=== PATIENT | male | born 2000 | race African-American/Black ===

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

== ENCOUNTER 2020-08-18 10:06 | Emergency (ER) | payer MEDICAID ==
[~2020-08-18] VITALS: Ht 193 cm; Wt 140.9 kg
[2020-08-18 10:41] VITALS: TEMP 98.3
[2020-08-18] MEDS ORDERED: FLEXERIL 1010 MG/TAB PO (12:40)
[2020-08-18 13:20] VITALS: BP 125/74; PULSE 52
== END 2020-08-18 13:20 | disposition home or self-care (01) ==
LOC: COL.ER 10:06
DX: M54.5 Low back pain (principal)
CPT/HCPCS: J1885